=== PATIENT | female | born 1950 | race Caucasian/White ===

== ENCOUNTER 2021-03-18 18:14 | Observation (INO) | payer MEDICARE ==
--- NOTE | 2021-03-18 18:52 | XR ---
EXAMINATION TYPE: XR chest 2V DATE OF EXAM: 03/18/2021 COMPARISON: NONE HISTORY: Chest pain TECHNIQUE: Frontal and lateral views of the chest are obtained. FINDINGS: There is no focal air space opacity, pleural effusion, or pneumothorax seen. The cardiac silhouette size is within normal limits. The osseous structures are intact. IMPRESSION: No acute cardiopulmonary process.
--- NOTE | 2021-03-18 18:59 | ED ---
Chest Pain HPI - General Chief Complaint: Chest Pain Stated Complaint: Chest Pain Source: patient Mode of arrival: EMS Limitations: no limitations - History of Present Illness Initial Comments: Patient is a 71 old female past medical history of diabetes, high blood pressure, high cholesterol who presents emergency Department with reported chest pain. She states that she is in town visiting her sister when she had sudden onset of right-sided chest pain which went into her right jaw. She denies a previous history of cardiac disease. Admits that she had associated nausea with an episode of vomiting. EMS was called. They provided her with a full dose aspirin, 2 nitro and 15 mg of Toradol. She denies fevers, chills or cough. Denies abdominal pain. No history of DVT or PE. No other alleviating, precipitating or modifying factors - Related Data Home Medications Medication Instructions Recorded Confirmed Famotidine 40 mg PO HS 03/18/21 03/18/21 Losartan Potassium [Cozaar] 25 mg PO HS 03/18/21 03/18/21 Simvastatin [Zocor] 20 mg PO HS 03/18/21 03/18/21 metFORMIN HCL [Glucophage] 500 mg PO DAILY 03/18/21 03/18/21 Allergies Allergy/AdvReac Type Severity Reaction Status Date / Time cephalexin Allergy Swelling Verified 03/18/21 18:30 ciprofloxacin [From Cipro] Allergy Itching Verified 03/18/21 18:30 Review of Systems ROS Statement: Those systems with pertinent positive or pertinent negative responses have been documented in the HPI. ROS Other: All systems not noted in ROS Statement are negative. EKG Findings - EKG Comments: EKG Findings:: EKG demonstrates normal sinus rhythm with a ventricular rate of 72. DE interval 160. QRS 98. QTC of 41. No acute ST segment elevations or depressions concerning for ischemic changes Past Medical History Past Medical History: Diabetes Mellitus, GERD/Reflux, Hyperlipidemia History of Any Multi-Drug Resistant Organisms: None Reported Past Surgical History: Hysterectomy Past Psychological History: No Psychological Hx Reported Smoking Status: Never smoker Past Alcohol Use History: Occasional Past Drug Use History: None Reported General Exam Limitations: no limitations Course Vital Signs 03/18/21 18:22 Temperature 98.2 F Pulse Rate 77 Respiratory 16 Rate Blood Pressure 145/83 O2 Sat by Pulse 96 Oximetry Chest Pain MDM - MDM On arrival patient was placed into room 9. A thorough history and physical exam was performed. Patient is hooked to continuous pulse ox and cardiac monitoring. 12-lead EKG was performed. Laboratory studies are conducted and reviewed. D- dimer negative at 0.5. Troponin is negative. Chest x-ray is performed and demonstrates no acute process. I did discuss diagnosis, differential and treatment options. Due to the patient's elevated heart or I recommended overnight observation in order to trend her troponins which the patient did agree. Spoke with Dr. Snowden who agreed to admit the patient. She is currently awaiting a bed on the floor Disposition Clinical Impression: Chest pain Disposition: ADMITTED IP TO THIS HOSP Condition: Stable Is patient prescribed a controlled substance at d/c from ED?: No Decision to Admit Reason: Admit from EC Decision Date: 03/18/21 Decision Time: 21:37
[2021-03-18 20:11] LABS: Basophils % (A) 0 %; Eosinophils # (A) 0.2 k/uL (0-0.7); Eosinophils % (A) 2 %; HCT 37.3 % (34.0-46.0); HGB 12.3 gm/dL (11.4-16.0); Lymphocytes # (A) 2.3 k/uL (1.0-4.8); Lymphocytes % (A) 27 %; MCH 31.7 pg (25.0-35.0); MCHC 32.9 g/dL (31.0-37.0); MCV 96.2 fL (80.0-100.0); Mean Platelet Volume 8.4; Monocytes # (A) 0.4 k/uL (0-1.0); Monocytes % (A) 5 %; Neutrophils # (A) 5.6 k/uL (1.3-7.7); Neutrophils % (A) 64 %; Platelet Count 253 k/uL (150-450); RBC 3.88 m/uL (3.80-5.40); RDW 12.9 % (11.5-15.5); WBC 8.8 k/uL (3.8-10.6)
[2021-03-18 20:27] LABS: ALT 19 U/L (4-34); AST 24 U/L (14-36); African American GFR (CKD) 79 (>60 ml/min/1.73 sqM); Albumin 3.9 g/dL (3.5-5.0); Alcohol <10 mg/dL; Alkaline Phosphatase 73 U/L (38-126); Anion Gap 8 mmol/L; Blood Urea Nitrogen 19 mg/dL (7-17); Calcium 8.9 mg/dL (8.4-10.2); Carbon Dioxide 21 mmol/L (22-30); Chloride 108 mmol/L (98-107); Glucose 101 mg/dL (74-99); Lipase 189 U/L (23-300); Magnesium 1.9 mg/dL (1.6-2.3); Non-African American GFR(CKD) 68 (>60 ml/min/1.73 sqM); Potassium 3.5 mmol/L (3.5-5.1); Sodium 137 mmol/L (137-145); Total Bilirubin <0.1 mg/dL (0.2-1.3); Total Protein 6.1 g/dL (6.3-8.2)
[2021-03-18 20:34] LABS: INR 0.9 (<1.2); Prothrombin Time 9.6 sec (9.0-12.0)
[2021-03-18 21:02] LABS: Partial Thromboplastin Time 19.8 sec (22.0-30.0)
[2021-03-18] MEDS ORDERED: NALOXONE 0.4 MG/ML 1 ML VIAL IV PRN (21:37)
[2021-03-18] MEDS ORDERED: LOSARTAN 25 MG TAB PO SCH (21:45)
[2021-03-18] MEDS ORDERED: FAMOTIDINE 20 MG TAB PO SCH (21:45)
[2021-03-18] MEDS ORDERED: ATORVASTATIN 10 MG TAB PO SCH (21:45)
[2021-03-19 07:24] VITALS: BP 143/79; PULSE 77; RESP 18; TEMP 98.1
[2021-03-19] MEDS ORDERED: ASPIRIN 81 MG PO SCH (09:00)
--- NOTE | 2021-03-19 09:56 | P.CRDCN ---
History of Present Illness History of present illness: HISTORY OF PRESENTING ILLNESS This is a pleasant 71-year-old female past medical history significant for disease mellitus, hypertension, gastroesophageal reflux disease and dyslip idemia. She denies prior history of coronary artery disease and does not follow in the office with a dip guider stoves. We have been asked to see in consultation for chest pain. She states yesterday after eating deviled eggs she had an acute onset of pain in the right anterior chest that radiated to her right posterior shoulder and right jaw associated with nausea and vomiting. She has history of GERD and took TUMS that did not relieve her pain prompting her to call EMS. On arrival to the emergency department she still had ongoing discomfort and vomited 2. Her symptoms did slowly seemed to resolve on its own. She has had no further episodes since that time. DIAGNOSTICS EKG reveals sinus mechanism with no acute ST or T wave abnormalities noted. Chest xray negative for an acute cardiopulmonary process. Laboratory reviewed, cardiac enzymes negative 2, d-dimer 0.52, sodium 137, potassium 3.5, magnesium 1.9 creatinine 0.85. Current cardiac medications include losartan 25 mg daily and simvastatin 20 mg daily. REVIEW OF SYSTEMS At the time of my exam: CONSTITUTIONAL: Denies fever or chills. CARDIOVASCULAR: Denies chest pain, shortness of breath, orthopnea, PND or palpitations. RESPIRATORY: Denies cough. GASTROINTESTINAL: Denies abdominal pain, diarrhea, constipation, nausea or vom iting. MUSCULOSKELETAL: Denies myalgias. NEUROLOGIC: Denies numbness, tingling, headache or weakness. ENDOCRINE: Denies fatigue, weight change, polydipsia or polyurina. GENITOURINARY: Denies burning, hematuria or urgency with micturation. HEMATOLOGIC: Denies history of anemia or bleeding. PHYSICAL EXAMINATION Blood pressure 143/79 heart rate 77 afebrile and maintaining oxygen saturation on room air. CONSTITUTIONAL: No apparent distress. HEENT: Head is normocephalic. Pupils are equal, round. Sclerae anicteric. Mucous membranes of the mouth are moist. No JVD. No carotid bruit. CHEST EXAMINATION: Lungs are clear to auscultation. No chest wall tenderness is noted on palpation or with deep breathing. HEART EXAMINATION: Regular rate and rhythm. S1, S2 heard. No murmurs, gallops or rub. ABDOMEN: Soft, nontender. EXTREMITIES: 2+ peripheral pulses, no lower extremity edema and no calf tend erness. NEUROLOGIC EXAMINATION: Patient is awake, alert and oriented x3. ASSESSMENT Chest pain, atypical Diabetes mellitus Hypertension Dyslipidemia Gastroesophageal reflux disease PLAN And acute coronary event has been ruled out. Pain is atypical for angina. She does have significant risk factors with diabetes mellitus hypertension and dyslipidemia. The patient would like to be discharged home to follow-up with her primary care physician. She was visiting the area yesterday from [facility]. This is reasonable given normal EKG, no troponin changes and atypical symptoms. Stable for discharge from a cardiac perspective. Thank you kindly for this consultation. Nurse Practitioner note has been reviewed, I agree with a documented findings and plan of care. Patient was seen and examined. Past Medical History Past Medical History: Diabetes Mellitus, GERD/Reflux, Hyperlipidemia History of Any Multi-Drug Resistant Organisms: None Reported Past Surgical History: Hysterectomy Past Psychological History: No Psychological Hx Reported Smoking Status: Never smoker Past Alcohol Use History: Occasional Past Drug Use History: None Reported Medications and Allergies Home Medications Medication Instructions Recorded Confirmed Type Famotidine 40 mg PO HS 03/18/21 03/18/21 History Losartan Potassium [Cozaar] 25 mg PO HS 03/18/21 03/18/21 History Simvastatin [Zocor] 20 mg PO HS 03/18/21 03/18/21 History metFORMIN HCL [Glucophage] 500 mg PO DAILY 03/18/21 03/18/21 History Allergies Allergy/AdvReac Type Severity Reaction Status Date / Time cephalexin Allergy Swelling Verified 03/18/21 18:30 ciprofloxacin [From Cipro] Allergy Itching Verified 03/18/21 18:30 Physical Exam Vitals: Vital Signs Temp Pulse Resp BP Pulse Ox 03/19/21 07:21 98.1 F 77 18 143/79 98 03/19/21 05:41 60 16 143/82 98 03/19/21 00:57 78 18 136/80 98 03/18/21 22:20 78 20 133/72 98 03/18/21 20:58 80 18 140/78 98 03/18/21 18:22 98.2 F 77 16 145/83 96 Intake and Output 03/18/21 03/19/21 03/19/21 22:59 06:59 14:59 Other: Weight 58.06 kg Results 03/18/21 19:39 03/18/21 19:39 Cardiac Enzymes 03/18/21 03/18/21 03/18/21 Range/Units 19:39 19:39 22:48 AST 24 (14-36) U/L Troponin I <0.012 <0.012 (0.000-0.034) ng/mL Coagulation 03/18/21 Range/Units 19:39 PT 9.6 (9.0-12.0) sec APTT 19.8 L (22.0-30.0) sec CBC 03/18/21 Range/Units 19:39 WBC 8.8 (3.8-10.6) k/uL RBC 3.88 (3.80-5.40) m/uL Hgb 12.3 (11.4-16.0) gm/dL Hct 37.3 (34.0-46.0) % Plt Count 253 (150-450) k/uL Comprehensive Metabolic Panel 03/18/21 Range/Units 19:39 Sodium 137 (137-145) mmol/L Potassium 3.5 (3.5-5.1) mmol/L Chloride 108 H (98-107) mmol/L Carbon Dioxide 21 L (22-30) mmol/L BUN 19 H (7-17) mg/dL Creatinine 0.85 (0.52-1.04) mg/dL Glucose 101 H (74-99) mg/dL Calcium 8.9 (8.4-10.2) mg/dL AST 24 (14-36) U/L ALT 19 (4-34) U/L Alkaline Phosphatase 73 (38-126) U/L Total Protein 6.1 L (6.3-8.2) g/dL Albumin 3.9 (3.5-5.0) g/dL Current Medications Generic Name Dose Route Start Last Admin Trade Name Freq PRN Reason Stop Dose Admin Atorvastatin Calcium 10 mg 03/18/21 21:45 03/19/21 01:26 Atorvastatin 10 Mg Tab PO 10 mg HS ELIJAH Administration Famotidine 40 mg 03/18/21 21:45 03/19/21 01:26 Famotidine 20 Mg Tab PO 40 mg HS ELIJAH Administration Losartan Potassium 25 mg 03/18/21 21:45 03/19/21 01:26 Losartan 25 Mg Tab PO 25 mg HS ELIJAH Administration Naloxone HCl 0.2 mg 03/18/21 21:37 Naloxone 0.4 Mg/Ml 1 Ml Vial IV Q2M PRN Opioid Reversal Intake and Output 03/18/21 03/19/21 03/19/21 22:59 06:59 14:59 Other: Weight 58.06 kg 03/18/21 19:39 03/18/21 19:39
[2021-03-19 13:33] LABS: Chol/HDL Ratio 2.36; LDL Cholesterol,Calculated 36.2 mg/dL (0.0-131.0); VLDL Calculation 54.8 mg/dL (5.00-40.00)
== END 2021-03-19 11:08 | disposition home or self-care (01) ==
LOC: EC 18:14 → 1SOBS 21:37 → 6NMEDSUR 21:48 → 1SOBS 23:14 → 6NMEDSUR 23:15 → UNDODISOB 23:18
PROVIDERS: ADMIT Internal Medicine; ATTEND Internal Medicine
DX: R07.89 Other chest pain (principal); E11.9 Type 2 diabetes mellitus without complications; E78.00 Pure hypercholesterolemia, unspecified; E78.5 Hyperlipidemia, unspecified; I10 Essential (primary) hypertension; K21.9 Gastro-esophageal reflux disease without esophagitis; Z79.84 Long term (current) use of oral hypoglycemic drugs; Z79.899 Other long term (current) drug therapy; Z90.710 Acquired absence of both cervix and uterus
CPT/HCPCS: 99285; 36415; 93005; 85379; 83880; 80061; 80053; 83690; 83735; 84484; 85025; 85610; 85730; 71046; G0378 ×2; G0480; 80320